=== PATIENT | female | born 1970 | race Hispanic/Latino ===

== ENCOUNTER 2024-12-11 02:40 | Emergency (ER) | payer BC ==
[~2024-12-11] VITALS: Ht 170.2 cm; Wt 75.7 kg
[2024-12-11 02:46] VITALS: PULSE 70; RESP 18; TEMP 98.2
[2024-12-11] MEDS ORDERED: IOPAMIDOL 370 MG/ML 100 ML INFUS..BTL INJ ONE (03:12)
[2024-12-11] MEDS: ONDANSETRON HCL INJ 2MG/ML 2ML 2 MG/ML VIAL IV STA (03:36)
[2024-12-11] MEDS: DICYCLOMINE HCL 20 MG/2 ML VIAL IM ONE (03:36)
[2024-12-11] MEDS: SODIUM CHLORIDE 0.9% 1000ML 1,000 ML IV ONE (03:37)
[2024-12-11] MEDS: KETOROLAC TROMETHAMINE 30 MG/ML VIAL IV STA (03:42)
[2024-12-11] MEDS: LIDOCAINE VISC 2% SOLN 15 ML UDC PO ONE (03:42)
[2024-12-11] MEDS: FAMOTIDINE 20 MG/2 ML VIAL IV STA (03:42)
[2024-12-11] MEDS: BELLADONNA ALK/PHENOBARBITAL 5 ML UDC PO ONE (03:42)
[2024-12-11] MEDS ORDERED: DICYCLOMINE HCL20 MG PO (04:18)
[2024-12-11 04:33] VITALS: BP 148/76; PULSE 70; RESP 18; TEMP 98.2; O2SAT 97
== END 2024-12-11 04:30 | disposition home or self-care (01) ==
LOC: FSED 02:59
DX: R10.84 Generalized abdominal pain (principal); R11.2 Nausea with vomiting, unspecified; R19.7 Diarrhea, unspecified
CPT/HCPCS: 74177; 80048; 80076; 81003; 85025; 96372; 96374; 96375; 99284; J0500; J1308; J1885; J2405; J7030; Q9967